=== PATIENT | female | born 1960 | race African-American/Black ===

== ENCOUNTER 2016-10-03 10:49 | Emergency (ER) | payer OTHER, MEDICAID ==
[~2016-10-03] VITALS: Ht 170.2 cm; Wt 80.0 kg
[2016-10-03 11:47] LABS: BASOPHILS % 0.3 % (0.0-2.0); EOSINOPHILS % 6.2 % (0.0-5.0); HEMATOCRIT. 41.5 % (36.0-48.0); HEMOGLOBIN. 13.6 g/dL (12.0-16.0); LYMPHOCYTES % 19.5 % (20.0-50.0); MEAN CORPUSCULAR HEMOGLOBIN 27.7 pg (28.0-32.0); MEAN CORPUSCULAR HGB CONC 32.8 g/dL (31.0-37.0); MEAN CORPUSCULAR VOLUME 84.5 fL (81.0-99.0); MEAN PLATELET VOLUME 8.5 fl (7.4-10.4); MONOCYTES % 5.5 % (2.0-8.0); NEUTROPHILS % 68.5 % (40.0-76.0); PLATELET 260 x1000/uL (130-400); RED CELL DISTRIBUTION WIDTH 15.4 % (11.6-14.6); WHITE BLOOD COUNT 7.5 x1000/uL (4.5-11.0)
[2016-10-03 12:03] LABS: ALANINE AMINOTRANSFERASE 38 IU/L (13-61); ALBUMIN 3.3 g/dL (3.4-5.0); ANION GAP 11; CALCIUM 8.5 mg/dL (8.5-10.1); CARBON DIOXIDE 30 mEq/L (21-32); CHLORIDE 105 mEq/L (98-107); INDEX HEMOLYSI 1 (1-3); INDEX ICTERIC 1 (1-4); INDEX LIPEMIC 1 (1-3); NT PRO B-TYPE NATRIURETIC PEP 96 pg/mL (5-125); TROPONIN I < 0.02 ng/mL (0.00-0.04); UREA NITROGEN BLOOD 12 mg/dL (7-21); eGFR > 60 mL/min (>60)
[2016-10-03 12:20] LABS: CLARITY URINE CLEAR (CLEAR); COLOR URINE YELLOW (YELLOW); GLUCOSE URINE NEGATIVE (NEGATIVE); KETONES URINE NEGATIVE (NEGATIVE); LEUKOCYTE ESTERASE URINE 1+ (NEGATIVE); NITRITE URINE NEGATIVE (NEGATIVE); OCCULT BLOOD URINE NEGATIVE (NEGATIVE); PROTEIN URINE NEGATIVE (NEGATIVE); SPECIFIC GRAVITY URINE 1.021 (1.005-1.030)
[2016-10-03 12:32] LABS: BACTERIA URINE 2+; RBC URINE NONE SEEN /hpf (0-2); SQUAMOUS EPITHELIAL CELL URINE FEW /lpf (RARE/1+); WBC URINE 0-2 /hpf (0-2)
[2016-10-03 12:44] LABS: *AMPHETAMINES SCREEN URINE NEGATIVE (NEGATIVE); *BARBITURATES SCREEN URINE NEGATIVE (NEGATIVE); *BENZODIAZEPINES SCREEN URINE NEGATIVE (NEGATIVE); *COCAINE SCREEN URINE NEGATIVE (NEGATIVE); CANNABINOID URINE SCREEN NEGATIVE (NEGATIVE); ECSTASY MDMA SCREEN URINE NEGATIVE (NEGATIVE); METHADONE URINE SCREEN NEGATIVE (NEGATIVE); OPIATES URINE SCREEN NEGATIVE (NEGATIVE); PHENCYCLIDINE URINE SCREEN NEGATIVE (NEGATIVE)
[2016-10-03 13:58] VITALS: BP 126/77
== END 2016-10-03 14:00 | disposition home or self-care (01) ==
LOC: ER 11:06
DX: M94.0 Chondrocostal junction syndrome [Tietze] (principal); R73.03 Prediabetes; E86.0 Dehydration; D72.810 Lymphocytopenia; D72.1 Eosinophilia; E88.09 Other disorders of plasma-protein metabolism, not elsewhere classified; R82.71 Bacteriuria; N17.0 Acute kidney failure with tubular necrosis; I10 Essential (primary) hypertension
CPT/HCPCS: 36415; 71010; 80053; 80305; 81001; 83036; 83880; 84484; 85025; 93005; 99285; Z7610